=== PATIENT | male | born 1965 | race American Indian/Alaskan Native ===

== ENCOUNTER 2022-01-22 07:52 | Emergency (ER) | payer OTHER ==
[2022-01-22 09:01] VITALS: BP 135/89
[2022-01-22] MEDS ORDERED: predniSONE 20 MG TAB PO ONE (09:26)
[2022-01-22] MEDS ORDERED: oxyCODONE /ACETAMINOPHEN 5-325MG TAB PO ONE (09:27)
--- NOTE | 2022-01-22 09:42 | Emergency Department Report ---
ED Extremity Problem HPI - General Chief complaint: Extremity Injury, Lower Stated complaint: LEG AND FEET NUMBNESS Time Seen by Provider: 01/22/22 09:08 Source: patient Mode of arrival: Ambulatory Limitations: No Limitations - History of Present Illness Initial comments: 56-year-old black male with a past medical history of hypertension and diabetes presents to the emergency department for evaluation of bilateral leg pain. States that he has a long history of diabetic neuropathies for which he follows with his primary care provider and takes gabapentin 300 mg daily for, but he states that pain seems to be getting worse and gabapentin is not helping. He denies injury or trauma. MD Complaint: extremity pain -: Gradual, month(s) Location: bilateral lower extremity History of Same: Yes -: No myalgia, No arthralgia, No fever, No associated dyspnea, No associated chest pain Severity scale (0 -10): 10 Quality: burning, aching Consistency: constant Worsens with: weight bearing, walking, palpation Associated Symptoms: denies: chest pain, shortness of breath, fever, myalgias, arthralgias, rash - Related Data Home Medications Medication Instructions Recorded Confirmed Last Taken Adult Aspirin 325 mg PO TID 01/22/22 01/22/22 1 Day Ago ~01/21/22 Cyanocobalamin [Vitamin B-12] 1,000 mcg PO DAILY 01/22/22 01/22/22 1 Day Ago ~01/21/22 Gabapentin 300 01/22/22 1 Day Ago ~01/21/22 Vitamin D (Nf) 1,250 caplet PO 1XW 01/22/22 01/22/22 1 Day Ago ~01/21/22 amLODIPine 5 tab PO BID 01/22/22 01/22/22 1 Day Ago ~01/21/22 Previous Rx's Medication Instructions Recorded Last Taken Type Acetaminophen/Codeine [Tylenol 1 tab PO Q6H PRN #10 tab 01/22/22 Unknown Rx /Codeine # 3 tab] Methyl Salicylate/Menthol [Capasil 59 ml TP QID #1 tube 01/22/22 Unknown Rx 2%-10% Cream] Pregabalin [Lyrica] 50 mg PO TID #90 cap 01/22/22 Unknown Rx Allergies Allergy/AdvReac Type Severity Reaction Status Date / Time Penicillins Allergy Hives Verified 01/22/22 08:46 ED Review of Systems ROS: Stated complaint: LEG AND FEET NUMBNESS Other details as noted in HPI Comment: All other systems reviewed and negative Constitutional: denies: chills, fever Respiratory: denies: cough, shortness of breath, SOB with exertion, SOB at rest Cardiovascular: denies: chest pain, palpitations, dyspnea on exertion, orthopnea, edema, syncope, paroxysmal nocturnal dyspnea Gastrointestinal: denies: abdominal pain, nausea, vomiting Musculoskeletal: denies: back pain Neurological: denies: headache, weakness, numbness, paresthesias, abnormal gait, vertigo ED Past Medical Hx - Past Medical History Previous Medical History?: Yes Hx Hypertension: Yes Hx Diabetes: Yes - Surgical History Past Surgical History?: Yes Additional Surgical History: laminectomy - Social History Smoking Status: Never Smoker - Medications Home Medications: Home Medications Medication Instructions Recorded Confirmed Last Taken Type Acetaminophen/Codeine [Tylenol 1 tab PO Q6H PRN #10 tab 01/22/22 Unknown Rx /Codeine # 3 tab] Adult Aspirin 325 mg PO TID 01/22/22 01/22/22 1 Day Ago History ~01/21/22 Cyanocobalamin [Vitamin B-12] 1,000 mcg PO DAILY 01/22/22 01/22/22 1 Day Ago History ~01/21/22 Gabapentin 300 01/22/22 1 Day Ago History ~01/21/22 Methyl Salicylate/Menthol [Capasil 59 ml TP QID #1 tube 01/22/22 Unknown Rx 2%-10% Cream] Pregabalin [Lyrica] 50 mg PO TID #90 cap 01/22/22 Unknown Rx Vitamin D (Nf) 1,250 caplet PO 1XW 01/22/22 01/22/22 1 Day Ago History ~01/21/22 amLODIPine 5 tab PO BID 01/22/22 01/22/22 1 Day Ago History ~01/21/22 ED Physical Exam - General Limitations: No Limitations General appearance: alert, in no apparent distress - Head Head exam: Present: atraumatic, normocephalic - Eye Eye exam: Present: normal appearance. Absent: conjunctival injection - Neck Neck exam: Present: normal inspection - Respiratory Respiratory exam: Present: normal lung sounds bilaterally. Absent: respiratory distress - Cardiovascular Cardiovascular Exam: Present: tachycardia, normal heart sounds - GI/Abdominal GI/Abdominal exam: Present: soft, normal bowel sounds. Absent: distended, tenderness, guarding, rebound, rigid - Expanded Lower Extremity Exam Left Lower Leg exam: Present: normal inspection, tenderness. Absent: swelling, abrasion, ecchymosis, erythema Foot/Toe exam: Present: normal inspection, tenderness. Absent: swelling, abrasion, laceration, ecchymosis, deformity, erythema Neuro vascular tendon exam: Present: no vascular compromise. Absent: pulse deficit, abnormal cap refill, extremity cold to touch Gait: Positive: observed and limited by pain Right Lower Leg exam: Present: normal inspection. Absent: swelling, abrasion, laceration, ecchymosis, erythema Foot/Toe exam: Present: normal inspection Neuro vascular tendon exam: Present: no vascular compromise. Absent: pulse deficit, abnormal cap refill, extremity cold to touch - Back Exam Back exam: Present: normal inspection - Neurological Exam Neurological exam: Present: alert, oriented X3 - Psychiatric Psychiatric exam: Present: normal affect, normal mood - Skin Skin exam: Present: warm, dry, intact, normal color ED Course Vital Signs 01/22/22 01/22/22 09:00 09:38 Temperature 98.5 F Pulse Rate 102 H Respiratory 19 14 Rate Blood Pressure 135/89 [Right] O2 Sat by Pulse 100 Oximetry ED Medical Decision Making - Medical Decision Making 56-year-old black male with a past medical history of hypertension and diabetes presents to the emergency department for evaluation of bilateral leg pain. States that he has a long history of diabetic neuropathies for which he follows with his primary care provider and takes gabapentin 300 mg daily for, but he states that pain seems to be getting worse and gabapentin is not helping. He denies injury or trauma. History, symptoms and exam consistent with diabetic neuropathies. Patient will be given trial of Lyrica to take daily for neuropathy pain along with capsaicin cream and Tylenol 3 as needed. Patient states that he took Lyrica a few years ago that did help him with the pain. He is advised to take medications as prescribed and follow-up with primary care provider for improved management and evaluation. Verbalized understanding of and agreement with plan of care. Critical care attestation.: If time is entered above; I have spent that time in minutes in the direct care of this critically ill patient, excluding procedure time. ED Disposition Clinical Impression: Bilateral leg pain Disposition: HOME / SELF CARE / HOMELESS Is pt being admited?: No Does the pt Need Aspirin: No Condition: Stable Instructions: Neuropathic Pain, Peripheral Neuropathy Prescriptions: Methyl Salicylate/Menthol [Capasil 2%-10% Cream] 59 ml TP QID #1 tube Pregabalin [Lyrica] 50 mg PO TID #90 cap Acetaminophen/Codeine [Tylenol /Codeine # 3 tab] 1 tab PO Q6H PRN #10 tab PRN Reason: Pain , Severe (7-10) Referrals: JATIN STRINGER MD [Staff Physician] - 3-5 Days Time of Disposition: 09:44
== END 2022-01-22 10:21 | disposition home or self-care (01) ==
LOC: ED 07:52
DX: M79.606 Pain in leg, unspecified (principal); I10 Essential (primary) hypertension; E11.9 Type 2 diabetes mellitus without complications; Z98.890 Other specified postprocedural states; Z88.0 Allergy status to penicillin
CPT/HCPCS: 82962; 99282